=== PATIENT | female | born 1965 | race Caucasian/White ===

== ENCOUNTER 2017-06-08 15:30 | Outpatient (RCR) | payer MEDICAID, SELFPAY ==
--- NOTE | 2017-05-11 08:24 | HP.PTEVAL_ITS ---
Patient's Visit Information FERNANDO POTTER is a 51 year old F referred to Physical Therapy by DO TATIANA Day with a diagnosis of Lumbar post- laminectomy syndrome, arthopathy of lumbar facet, lumbar radic. Date of Evaluation: 05/08/17 Physical Therapist: Montez Rowell - Visit Plan Frequency: 2x /Week Duration: 4 Weeks Plan: Start core strengthening, graded exercises, deep water hanging in aquatic setting to reduce symptoms and stabilize core to reduce stress on lumbar spine with all functional mobility. - Subjective Subjective: Pt. 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 Pt. reports having back pain for 20+ years with surgery in 2003. Pt. reports she had initial relief, but started to come back after 1-2 years. Pt. reports no mechanism of injury, but has increased symptoms recently. Pt. does report occassionally that her legs with give out on her if she walks/stands for a while. Pt. denies N/T in either LE. Pt. reports no changes in B/B. Difficulty sleeping; pain keeps her up at night. Increased pain: bending, twisting, walking, standing, ADLs. Decreased pain: changes in positoing, meds, heat. Pt. is not working currently. Pt. reports no leg weakness that she knows up. Pt. has not been doing any exercises. Pt. 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 - Pain Lumbar spine Pain Intensity (Out of 10): 7 Pain Intensity Range: 6, 10 R hip Pain Intensity (Out of 10): 4 Pain Intensity Range: 2, 7 L hip Pain Intensity (Out of 10): 4 Pain Intensity Range: 2, 7 - Objective POSTURE: Pt. has decreased lumbar lordosis. Pt. has FH positioning with R wt. shift. Pt. has normal TERRELL, but continues to shift wt. side to side. PALPATION: Pt. has increased tenderness throughout lumbar erector spinea, bilaterally. Pt. has increased pain througout SI joints bilaterally and gluteal regions. NERULOGICAL: Pt. has normal sensation throughout bilateral LEs to light and sharp touch. Pt. has 2 achilles and patellar DTR bilaterally. Pt. is able to rise on heels and toes without visible weakness or LOB. ROM: LUMBAR SPINE: flexion mod loss increase NW, extension mod loss increase NW, SB mod loss increase NW bilaterally, rotatin mod loss increase NW bilaterally. HIPS: R side - flexion 110deg increase NW, abd 45 deg NE, ext 10deg increase NW, IR 28deg increase NE groin, ER 45deg increase NW lumbar spine. L side- flexion 120deg NE , abd 45deg NE< ext 10deg increase NW lumbar spine, IR 32deg NE, ER 45deg increase NW lumbar spine. MMT: RLE- ankle 5/5 throughout; knee- ext 4+/5 increase NW LBP, flexion 4+/5 increase LBP; hip- flexion 4/5 increase LBP, abd 4 /5 increase LBP, ext 45 increase LBP. LLE- ankle 5/5 throughout increase LBP; knee- ext 4+/5 increase LBP, flexion 4+/5 increase LBP; hip- flexion 4/5 increase LBP, abd 4/5 increas LBP, ext 4/5 increase LBP. Core- poor. GAIT: Pt. ambulates without AD, but has antalgic pattern on R side. Pt. has increased trnk lean to R side during R stance phase. Pt. has normal step length bilaterally. Pt. has fwrd lean throughout. STAIRS: Pt. completes with reciprocal pattern with 2HR with increase in symptoms with each loading phase. - Special Tests L/S Slump test left side: Positive L/S Slump test right side: Positive L/S Left Straight Leg Raise: Positive L/S Right Straight Leg Raise: Positive L/S Left Femoral Nerve Tension: Negative L/S Right Femoral Nerve Tension: Negative L/S Instability PA Test: Negative L/S Prone Instability Test: Negative Passive L/S Extension Test: Negative Lumbar Standing: Flexion - Mechanical Response: No effect Lumbar Standing: Flexion - Symptoms During Testing: Increases Lumbar Standing: Flexion - Symptoms After Testing: Worse Lumbar Standing: Extension - Mechanical Response: No effect Lumbar Standing: Extension - Symptoms During Testing: Increases Lumbar Standing: Extension - Symptoms After Testing: Worse Lumbar Standing: Right Side Glides - Mechanical Response: No effect Lumbar Standing: Right Side [place] - Symptoms During Testing: Increases Lumbar Standing: Right Side [place] - Symptoms After Testing: Worse Lumbar Standing: Left Side [place] - Mechanical Response: No effect Lumbar Standing: Left Side [place] - Symptoms During Testing: Increases Lumbar Standing: Left Side [place] - Symptoms After Testing: Worse Lumbar Lying: Flexion - Mechanical Response: No effect Lumbar Lying: Flexion - Symptoms During Testing: Increases Lumbar Lying: Flexion - Symptoms After Testing: Worse Lumbar Lying: Extension - Mechanical Response: No effect Lumbar Lying: Extension - Symptoms During Testing: Increases Lumbar Lying: Extension - Symptoms After Testing: Worse Lumbar Static: Slouched Sit - Mechanical Response: No effect Lumbar Static: Slouched Sit - Symptoms During Testing: No effect Lumbar Static: Slouched Sit - Symptoms After Testing: No effect Lumbar Static: Sitting Erect - Mechanical Response: No effect Lumbar Static: Sitting Erect - Symptoms During Testing: Increases Lumbar Static: Sitting Erect - Symptoms After Testing: Worse Lumbar Static:Lying Prone in Extension - Mechanical Response: No effect Lumbar Static: Lying Prone in Extension - Sx During Testing: Increases Lumbar Static: Lying Prone in Extension - Sx After Testing: Worse - Goals Goal 1:: Pt. to be I with HEP. Goal Time Frame: 4-6 Weeks Goal 2:: Pt. to have increased lumbar ROM by 25% in all directions without increase in symptoms. Goal Time Frame: 4-6 Weeks Goal 3:: Pt.to have increased core and hip strength by 1/2 grade of all effected musculature reducing stress applied to lumbar spine with all functional mobility. Goal Time Frame: 4-6 Weeks Goal 4:: Pt. to be educated in prophalxis techniques. Goal Time Frame: 4-6 Weeks Goal 5:: Pt. to ambulate unlimited distances with 0-2/10 pain in lumbar spine allowing for increased healthy lifestyle. Goal Time Frame: 4-6 Weeks - Rehabilitation Potential Physical Therapy Diagnosis: Pt. has signs and symptoms consistent with chronic LBP. Pt. has pain with multiple testing thsi date. Pt. has generalized pain throughout movements and testing, hard to determine acutal cause, no directional preference noted. Pt. would benefit from PT to reduce symptoms, graded exercises to increase generalized mobility. Rehabilitation Potential: Fair - Anticipated Interventions Patient/Client Instruction: Educate patient on: Condition, Plan of Care, Risk Factors, Benefits of Fitness Program For the Purpose of:: To improve safety, To improve health and function, To foster healthy habits, To improve decision making, To facilitate caregiver knowledge, To improve self management, To prevent re-injury, To improve ability to perform tasks related to life management, To improve tolerance to ADL's Therapeutic Exercise to Include: Strength training, Power training, Endurance training, Body mechanics, Postural training, Flexibilty training, Gait and locomotor training, Dynamic Lumbar Stabilization, Kvng Exercises For the Purpose of:: To decrease pain, To decrease swelling/inflammation, To increase ROM, To improve nutrient delivery to tissue, To increase oxygenation perfusion, To improve muscle performance and motor function, To improve ability to perform ADL's, To increase tolerance to activity/condition/position, To improve health of tissue, To decrease soft tissue restriction, To increase flexibility/ROM, To improve endurance, To improve balance IF ES: Yes Cryotherapy (ice pack, ice massage): Yes Thermo therapy (hot pack): Yes Ultrasound (thermal/non thermal): Yes For the Purpose of:: To decrease pain, To decrease swelling/inflammation, To increase ROM Thank you for the opportunity to evaluate your patient. For Medicare and Medicare HMO plans, please review the plan of care and approve it. It will need to be FAXED BACK to us at [phone] for Medicare purposes. Please let me know if there are questions or concerns regarding this plan of care. Physician Signature: Date:
--- NOTE | 2017-06-09 12:48 | HP.PTREVAL_ITS ---
Melissa Bradford DO, It has been my pleasure to treat FERNANDO POTTER over the last 4 visits for Lumbar post- laminectomy syndrome, arthopathy of lumbar facet, lumbar radic. Please see the progress note below for an update on the physical therapy plan of care! Subjective: Pt. arrives today with reports I am miserable. Pt. reports having pain for ~4-5 days after every aquatic PT session. Pt. denies N/T and does not report that her legs are giving out on her, but reports no benefit from PT at this point in time. Objective/Function: LUMBAR ROM: flexion min/mod loss increase NW, ext mod loss increase NW, SB mod loss bilat increase NW, rotation mod loss bilat increase NW. MMT- RLE- ankle 5/5 throughout; knee- ext 4+/5, flexion 4/5; hip- flexion 4 /5 increase NW, abd 4/5, ext 4/5 increase NW. LLE- ankle 5/5 throughout; knee- ext 4+/5, flexion 4/5; hip- flexion 4/5 increase NW, abd 4/5, ext 4/5 increase NW. GAIT: pt. has increased trunk flexion in stance and walking. Pt. reports increased pain during R stance phase, worse than L. Plan Plan: Pt. instructed to follow up with physician as PT is making her pain worse to determine if imaging is required. Pt. reports having no relief with injections previously. Goals Goal 1:: Pt. to be I with HEP. Goal Time Frame: 4-6 Weeks Goal Progress: Not Progressing Goal 2:: Pt. to have increased lumbar ROM by 25% in all directions without increase in symptoms. Goal Time Frame: 4-6 Weeks Goal Progress: Not Progressing Goal 3:: Pt.to have increased core and hip strength by 1/2 grade of all effected musculature reducing stress applied to lumbar spine with all functional mobility. Goal Time Frame: 4-6 Weeks Goal Progress: Progressing Goal 4:: Pt. to be educated in prophalxis techniques. Goal Time Frame: 4-6 Weeks Goal Progress: Goal Met Goal 5:: Pt. to ambulate unlimited distances with 0-2/10 pain in lumbar spine allowing for increased healthy lifestyle. Goal Time Frame: 4-6 Weeks Goal Progress: Not Progressing Anticipated Interventions Patient/Client Instruction: Educate patient on: Condition, Plan of Care, Risk Factors, Benefits of Fitness Program For the Purpose of:: To improve safety, To improve health and function, To foster healthy habits, To improve decision making, To facilitate caregiver knowledge, To improve self management, To prevent re-injury, To improve ability to perform tasks related to life management, To improve tolerance to ADL's Therapeutic Exercise to Include: Strength training, Power training, Endurance training, Body mechanics, Postural training, Flexibilty training, Gait and locomotor training, Dynamic Lumbar Stabilization, Kvng Exercises For the Purpose of:: To decrease pain, To decrease swelling/inflammation, To increase ROM, To improve nutrient delivery to tissue, To increase oxygenation perfusion, To improve muscle performance and motor function, To improve ability to perform ADL's, To increase tolerance to activity/condition/position, To improve health of tissue, To decrease soft tissue restriction, To increase flexibility/ROM, To improve endurance, To improve balance IF ES: Yes Cryotherapy (ice pack, ice massage): Yes Thermo therapy (hot pack): Yes Ultrasound (thermal/non thermal): Yes For the Purpose of:: To decrease pain, To decrease swelling/inflammation, To increase ROM Please do not hesitate to contact me at [phone] by phone or Fax: if you have questions or concerns regarding this new plan of care! Sincerely, Montez Rowell
--- NOTE | 2017-07-19 19:46 | HP.PTDCSUM_ITS ---
HP - PT D/C Summary It has been my pleasure to treat FERNANDO POTTER under orders from Melissa Bradford DO, for the diagnosis of Lumbar post- laminectomy syndrome, arthopathy of lumbar facet, lumbar radic for a total of 4 visit(s). Discharge Date: Please see the following information for a summary of their discharge status. - Subjective Subjective: Pt. arrives today with reports I am miserable. Pt. reports having pain for ~4-5 days after every aquatic PT session. Pt. denies N/T and does not report that her legs are giving out on her, but reports no benefit from PT at this point in time. - Pain Lumbar spine Pain Intensity (Out of 10): 4 R hip Pain Intensity (Out of 10): 4 L hip Pain Intensity (Out of 10): 4 - Overall Improvement % Improvement: 25 - Objective Objective/Function: LUMBAR ROM: flexion min/mod loss increase NW, ext mod loss increase NW, SB mod loss bilat increase NW, rotation mod loss bilat increase NW. MMT- RLE- ankle 5/5 throughout; knee- ext 4+/5, flexion 4/5; hip- flexion 4 /5 increase NW, abd 4/5, ext 4/5 increase NW. LLE- ankle 5/5 throughout; knee- ext 4+/5, flexion 4/5; hip- flexion 4/5 increase NW, abd 4/5, ext 4/5 increase NW. GAIT: pt. has increased trunk flexion in stance and walking. Pt. reports increased pain during R stance phase, worse than L. - Goals Goal 1:: Pt. to be I with HEP. Goal Progress: Not Progressing Goal 2:: Pt. to have increased lumbar ROM by 25% in all directions without increase in symptoms. Goal Progress: Not Progressing Goal 3:: Pt.to have increased core and hip strength by 1/2 grade of all effected musculature reducing stress applied to lumbar spine with all functional mobility. Goal Progress: Progressing Goal 4:: Pt. to be educated in prophalxis techniques. Goal Progress: Goal Met Goal 5:: Pt. to ambulate unlimited distances with 0-2/10 pain in lumbar spine allowing for increased healthy lifestyle. Goal Progress: Not Progressing - Plan Plan: Pt. instructed to follow up with physician as PT is making her pain worse to determine if imaging is required. Pt. reports having no relief with injections previously. - D/C Information If there are questions or concerns regarding this patient's physical therapy, please feel free to call me at [phone]. Thank you for the referral of this patient. Sincerely, Montez Rowell
== END 2017-06-08 19:00 | disposition home or self-care (01) ==
LOC: PT 15:30
PROVIDERS: Visit Provider Anesthesiology Pain Medicine
DX: F11.20 Opioid dependence, uncomplicated (principal); M15.9 Polyosteoarthritis, unspecified; M96.1 Postlaminectomy syndrome, not elsewhere classified; M46.96 Unspecified inflammatory spondylopathy, lumbar region; M54.16 Radiculopathy, lumbar region; M51.36 Other intervertebral disc degeneration, lumbar region; M79.1 Myalgia; G89.4 Chronic pain syndrome; Z79.899 Other long term (current) drug therapy
CPT/HCPCS: 97113; 97162; 97530

== ENCOUNTER → 2017-07-30 16:18 | Outpatient (CLI) | payer MEDICAID, SELFPAY ==
--- NOTE | 2017-07-30 16:25 | RAD_ITS ---
STUDY: X-RAY - PELVIS AND BILATERAL HIPS REASON FOR EXAM: Female, 52 years old. Back and hip pain. TECHNIQUE: Radiological exam, hip, bilateral, with pelvis when performed; 3-4 views COMPARISON: None. FINDINGS: There is a non-specific bowel gas pattern. Normal visualized soft tissue structures. Normal bilateral iliac wings, sacroiliac joints and visualized sacrum. Normal bilateral superior and inferior pubic rami. Normal pubic symphysis. Normal bilateral ischial tuberosities. Normal visualized right femoral head. Normal right acetabulum. Normal right hip joint. Normal visualized left femoral head. Normal left acetabulum. Normal left hip joint. RAD/Hips B/L min 2 views w/ Pelvis IMPRESSION: Normal x-ray examination of the pelvis and bilateral hips. Electronically Signed: Jase August MD at 12:00 EDT , Service support ,
--- NOTE | 2017-07-30 16:25 | RAD_ITS ---
STUDY: X-RAY - LUMBAR SPINE REASON FOR EXAM: Female, 52 years old. Hip and back pain. TECHNIQUE: 5 view(s) of the lumbar spine were obtained. COMPARISON: None FINDINGS: Postoperative changes of fusion between L5 and S1. There is 6 mm anterolisthesis of L5 on S1 and marked narrowing of the disc at L5-S1. There is otherwise normal curvature and alignment. There is moderate narrowing of the disc at L3-L4. No acute abnormalities. No compression fractures. RAD/L/S Spine Min 4 Views IMPRESSION: No acute abnormalities. Postoperative and degenerative changes at L5-S1. Electronically Signed: Jase August MD at 11:46 EDT , Service support ,
== END ==
PROVIDERS: Family Provider Family Medicine; PCP Family Medicine
DX: M96.1 Postlaminectomy syndrome, not elsewhere classified (principal); M46.96 Unspecified inflammatory spondylopathy, lumbar region; M54.16 Radiculopathy, lumbar region; M25.559 Pain in unspecified hip
CPT/HCPCS: 72110; 73521

== ENCOUNTER → 2017-09-04 12:21 | Outpatient (CLI) | payer MEDICAID, SELFPAY ==
[2017-08-13 15:55] LABS: Anion Gap 7 (5-15); BUN 18 mg/dL (7-18); BUN/Creat Ratio 16.2 RATIO (10-20); Calcium,Total 9.1 mg/dL (8.5-10.1); Chloride 106 mmol/L (98-107); Creatinine, Serum 1.11 mg/dL (0.55-1.02); EST Glomerular Filtration Rate 55 mL/min (>60); Est Glom Filt Rate - Afr Amer 67 mL/min (>60); Glucose 99 mg/dL (74-106); Potassium 3.5 mmol/L (3.5-5.1); Sodium Level 141 mmol/L (136-145)
[2017-08-24 17:55] LABS: Rheumatoid Factor < 10.0 IU/mL (<15); Uric Acid 4.2 mg/dL (2.6-6.0)
[2017-08-25 15:12] LABS: Anion Gap 9 (5-15); BUN 11 mg/dL (7-18); BUN/Creat Ratio 11.7 RATIO (10-20); Calcium,Total 9.3 mg/dL (8.5-10.1); Chloride 105 mmol/L (98-107); Creatinine, Serum 0.94 mg/dL (0.55-1.02); EST Glomerular Filtration Rate 67 mL/min (>60); Est Glom Filt Rate - Afr Amer 81 mL/min (>60); Glucose 76 mg/dL (74-106); Potassium 4.2 mmol/L (3.5-5.1); Sodium Level 141 mmol/L (136-145)
--- NOTE | 2017-09-04 12:27 | MRI_ITS ---
STUDY: MRI LUMBAR SPINE WITH AND WITHOUT CONTRAST REASON FOR EXAM: Female, 52 years old. Status post laminectomy. Degenerative disc disease. Low back pain with radiculopathy to bilateral hips and legs. TECHNIQUE: Standardized fat and water weighted pulse sequences were obtained in the sagittal and axial planes. 7 ml of Gadavist contrast material was administered for the contrast portion of the examination. COMPARISON: Lumbar spine radiographs 07/30/2017. FINDINGS: T10-T11: (Sagittal only). Normal endplates. Minimal disc space height narrowing. Normal disc hydration and morphology. Normal central canal and bilateral intervertebral neural foramina. T11-T12: (Sagittal only). Normal endplates. Minimal disc space height narrowing. Normal disc hydration and morphology. Normal central canal and bilateral intervertebral neural foramina. T12-L1: (Sagittal only). Normal endplates. Normal disc height, hydration and morphology. Normal central canal and bilateral intervertebral neural foramina. Normal lumbar lordosis. There is no substantial scoliosis. Normal conus medullaris that terminates at the upper L1 vertebral body level. L1-2: Normal endplates. Normal disc height, hydration and morphology. Normal bilateral facet joints. Normal central canal and bilateral lateral recesses. Normal bilateral intervertebral neural foramina. L2-3: Anterior marginal spurs. Normal endplates. Moderate disc height narrowing with mild loss of disc hydration. Tiny posterior bulging disc. Normal central canal and bilateral lateral recesses. Normal facet joints. Normal bilateral intervertebral neural foramina. L3-4: Pronounced disc space height narrowing. Modic type I degenerative vertebral marrow edema underneath the vertebral endplates. Schmorl's nodes in the central aspect of both vertebral endplates. Small posterior annular bulging disc. Mild central canal stenosis. The AP canal diameter is 9 mm. Normal bilateral lateral recesses. Normal facet joints. Normal bilateral intervertebral neural foramina. L4-5: Normal endplates. Moderate disc space height narrowing with moderate loss of disc hydration. No ventral extradural defect. Normal central canal and bilateral lateral recesses. Mild degenerative facet arthropathy. Normal bilateral intervertebral neural foramina. L5-S1: Pronounced disc space height narrowing. The disc implant is difficult to appreciate since it has a signal dropout. There is Modic type II degenerative vertebral marrow fatty changes underneath the vertebral endplates. Normal central canal. Postsurgical absence of the spinous process and lamina. Pedicular screws and rods causing signal distortion artifacts of the bilateral intervertebral neural foramina. Normal visualized sacral ala. Normal visualized paraspinous soft tissue structures. No abnormal enhancing lesions intradural lesion extradurally. MRI/Spine Lumbar W/WO Contrast IMPRESSION: 1. Pronounced L3-L4 disc space height narrowing with multidetector type I degenerative vertebral marrow edema underneath the vertebral endplates and small posterior annular bulging disc. 2. Modic type II degenerative fatty bone marrow fatty changes underneath the vertebral endplates at the L5-S1 disc level. The pedicular screws and rods used for posterior decompression and fusion causing signal distortion artifacts of both L5-S1 intervertebral neural foramina. 3. No MRI evidence of cervical extruded disc fragment or cervical nerve root displacement. 4. No abnormally enhancing lesions intradurally and extradurally. 5. Moderate L2-L3 disc space height narrowing with tiny posterior bulging disc. Electronically Signed: Jayce Moise MD at 14:54 EDT , Service support ,
== END ==
PROVIDERS: Family Provider Family Medicine; PCP Family Medicine; Visit Provider Anesthesiology Pain Medicine
DX: M96.1 Postlaminectomy syndrome, not elsewhere classified (principal); M46.96 Unspecified inflammatory spondylopathy, lumbar region; M54.16 Radiculopathy, lumbar region; M51.36 Other intervertebral disc degeneration, lumbar region
CPT/HCPCS: 36415; 72158; 80048; 84550; 86431; A9585

== ENCOUNTER → 2017-10-15 13:39 | Outpatient (CLI) | payer MEDICAID, SELFPAY ==
[2017-10-15 15:41] LABS: Erythrocyte Sedimentation Rate 23 mm/hr (0-30)
[2017-10-15 15:46] LABS: CRP 3.46 mg/L (0.0-3.0)
[2017-10-16 09:10] LABS: Vitamin B12 301 pg/mL (211-911)
[2017-10-21 13:37] LABS: ANTINUCLEAR ANTIBODIES DIRECT Negative (Negative)
== END ==
PROVIDERS: Family Provider Family Medicine; PCP Family Medicine; Visit Provider Family Medicine
DX: E53.8 Deficiency of other specified B group vitamins (principal); M06.4 Inflammatory polyarthropathy
CPT/HCPCS: 36415; 82607; 85652; 86038; 86140